=== PATIENT | female | born 1955 | race Caucasian/White ===

== ENCOUNTER 2016-08-13 17:12 | Emergency (ER) | payer OTHER ==
--- NOTE | ~2016-08-13 | US85 ---
[facility] A Service of [facility] RADIOLOGY TEXT RESULTS PATIENT: REYNALDO MONTOYA LOCATION: DAVE : 57 UNIT #: [id number] AGE: [address]: Eldon Kolb MD SEX: F ORDER DR: [id number] [facility] [address] [place], [place] [address] [id number] MR#: [id number] Acc #: [id number] NAME: REYNALDO MONTOYA : 1955 SEX: F STUDY DATE/TIME: 08/13/2016 14:49 UNIT: DAVE ROOM: STUDY DESCRIPTION: [facility] [email or web address] Attending Physician: Eldon Kolb M.D. Ordering Physician: Kavin Osborne M.D. Primary Care Physician: Laura Rangel M.D. MEDICAL IMAGING REPORT This report is preliminary unless electronic signature is present EXAM Right lower extremity venous Doppler, 08/13/2016 HISTORY Right knee pain since surgery on July 13. PROCEDURE Dove-scale imaging, color Doppler flow imaging and Doppler waveform analysis. FINDINGS There is normal color flow, compressibility and where appropriate, respiratory phasicity and/or augmentation throughout the entire right lower extremity deep venous system. There is an approximately 1.5 x 3 x 5-cm popliteal fossa Pollard's cyst, but no DVT is seen and the superficial saphenous veins are normal as well. IMPRESSION 1. Normal, negative unilateral right lower extremity venous Doppler. No evidence of DVT. 2. Normal saphenous veins. 3. Popliteal fossa Pollard's cyst. Dictated by... Rogelio Paulino M.D. THIS IS AN ELECTRONICALLY VERIFIED REPORT Rogelio Paulino M.D. at 08/16/2016 3:48 PM TEV/psc TD: 08/14/2016 00:33 [facility] A Service of [facility] RADIOLOGY TEXT RESULTS PATIENT: REYNALDO MONTOYA LOCATION: DAVE : 57 UNIT #: [id number] AGE: [address]: Eldon Kolb MD SEX: F ORDER DR: JOB #: [id number] MEDICAL IMAGING REPORT COPY
[~2016-08-13 17:12] MED LIST: ALBUTEROL17 GM INH; BACLOFEN10 MG PO; BACTRIM DS TABL1 TA1 PO; KEFLEX500 MG PO; MOTRIN400 MG PO; MULTI-DAY VITAM1 TAB PO; NEXIUM PO; SYNTHROID PO; ULTRACET TABLET1 TAB PO; ULTRAM PO
[2016-08-13 18:13] LABS: BLOOD UREA NITROGEN 6 mg/dL (9-23); CALCIUM SERUM 8.6 mg/dL (8.4-10.2); CARBON DIOXIDE 27 mmol/L (22-31); CHLORIDE 108 mmol/L (100-111); CPK (CREATINE PHOSPHOKINASE) 31 IU/L (26-140); CREATININE SERUM 0.6 mg/dL (0.6-1.4); GLOM FILT RATE Estimated ABOVE60 mL/min (>60); GLUCOSE FASTING 80 mg/dL (70-110); POTASSIUM 4.1 mmol/L (3.5-5.1); SODIUM 137 mmol/L (135-145)
== END 2016-08-13 18:30 | disposition home or self-care (01) ==
LOC: CED 17:12
PROVIDERS: Emergency Medicine
DX: M71.20 Synovial cyst of popliteal space [Baker], unspecified knee (principal); M62.838 Other muscle spasm
CPT/HCPCS: 36415; 80048; 82550; 93971; 99284